=== PATIENT | female | born 1990 | race Caucasian/White ===

== ENCOUNTER 2017-06-25 18:46 | Observation (INO) | payer OTHER ==
[2017-06-25] MEDS ORDERED: Ondansetron HCl/PF 4 MG/2 ML Vial ONE ×2 (18:54→19:19)
[2017-06-25 19:23] LABS: #Lymphocytes 1.1 thou/uL (1.20-3.40); #Monocytes 0.9 thou/uL (0.11-0.59); #Neutrophils 14.3 thou/uL (1.40-6.50); %Basophils 0.2 % (0.0-1.0); %Eosinophils 0.1 % (0.0-10.0); %Lymphocytes 6.8 % (21.0-51.0); %Monocytes 5.2 % (0.0-10.0); %Neutrophils 87.7 % (42.0-75.0); Hemoglobin 11.4 g/dL (12.0-16.0); Mean Corpuscular HGB CONC 32.8 g/dL (32.0-36.0); Mean Corpuscular Hemoglobin 27.9 pg (27.0-31.0); Mean Corpuscular Volume 84.9 fl (81.0-99.0); Mean Platelet Volume 6.5 fL (7.4-10.4); Platelet Count 281 thou/uL (130-400); RBC Distribution Width 11.5 % (11.5-14.5); White Blood Cell (WBC) Count 16.3 thou/uL (4.8-10.8)
[2017-06-25 19:38] LABS: ALT (SGPT) 14 U/L (8-55); AST (SGOT) 13 U/L (5-34); Albumin 4.2 g/dL (3.5-5.0); Alkaline Phosphatase 57 U/L (40-150); Anion Gap 14 mmol/L (10-20); BUN (Urea Nitrogen) 13 mg/dL (7.0-18.7); Bilirubin, Total 0.7 mg/dL (0.2-1.2); Calc. Creatinine Clearance 0 mL/min (70-130); Calcium 9.4 mg/dL (7.8-10.44); Carbon Dioxide 23 mmol/L (22-29); Chloride 102 mmol/L (98-107); Estimated GFR-MDRD 88; Globulin 3.1 g/dL (2.4-3.5); Glucose 112 mg/dL (70-105); Lipase 8 U/L (8-78); Potassium 3.4 mmol/L (3.5-5.1); Protein, Total 7.3 g/dL (6.0-8.3); Sodium 136 mmol/L (136-145)
[2017-06-25 19:39] LABS: BHCG - Serum Negative (NEGATIVE); Pregs Control Background? CLEAR/WHITE (CLR/WHITE); Pregs Control Bar Appear? YES (CONTROL BAR)
[2017-06-25] MEDS ORDERED: Morphine 4 MG/ML Carpuject ONE (19:39)
[2017-06-25] MEDS ORDERED: Fentanyl 100 MCG/2 ML VIAL ONE ×2 (20:50→21:54)
[2017-06-25 21:09] LABS: Bilirubin Negative (Negative); Blood, Urine Negative (Negative); Clarity Cloudy (Clear); Glucose, Urine (Dipstick) Negative (Negative); Leukocyte Negative (Negative); Nitrite Negative (Negative); Protein, Urine (Dipstick) Negative (Neg-Trace); Specific Gravity, Urine 1.015 (1.005-1.030); Urobilinogen 0.2 mg/dL (0.2-1.0); pH, Urine 8.5 (5.0-9.0)
--- NOTE | 2017-06-25 21:41 | CT ---
CT ABDOMEN AND PELVIS WITH IV CONTRAST: 06/25/17 Multiple axial tomograms obtained through the abdomen and pelvis with IV enhancement. HISTORY: Right lower quadrant pain. Nausea, vomiting. FINDINGS: Lung bases are clear. Liver, spleen and pancreas unremarkable. Adrenal glands and kidneys are unremar kable. No hydronephrosis. No urinary tract calculus. Urinary bladder unremarkable. Small bowel loops appear unremarkable. The appendix is dilated and inflamed. There are radiodensities within the appendix suggesting appendicoliths. Small amount of fluid is seen adjacent to the appendi x. No definite evidence of rupture at this time. There is a small amount of fluid in the cul-de-sac. IMPRESSION: 1. Dilated inflamed appendix consistent with appendicitis. 2. Small amount of fluid adjacent to the appendix. No definite evidence of rupture. 3. Small amount of cul-de-sac fluid noted. Findings relayed to the nurse in the Emergency Department who will notify Dr. Johns of these findin gs. POS: [facility]
[2017-06-26 00:35] VITALS: BMI 28.0
[2017-06-26] MEDS ORDERED: Acetaminophen 1,000 MG in Premix Bag 1 BAG IVPB PRN (01:28)
[2017-06-26] MEDS ORDERED: Scopolamine 1.5 mg/72 hour Patch TOP SCH (01:30)
[2017-06-26] MEDS ORDERED: Fentanyl 100 MCG/2 ML VIAL SLOW IVP PRN (01:32)
[2017-06-26] MEDS ORDERED: Ondansetron HCl/PF 4 MG/2 ML Vial IVP PRN ×2 (01:33→09:10)
[2017-06-26] MEDS ORDERED: Ondansetron ODT 4 MG TAB SL PRN (01:33)
[2017-06-26] MEDS: Sodium Chloride 0.9% 1,000 ML IV SCH ×2 (01:40→11:07)
[2017-06-26] MEDS: Ketorolac Tromethamine 30 MG/ML VIAL IVP PRN ×2 (01:41→09:55)
[2017-06-26] MEDS ORDERED: metroNIDAZOLE 500 MG in Premix Bag 1 BAG IVPB SCH (02:00)
[2017-06-26] MEDS ORDERED: Bupivacaine PF 0.5% 30 ML VIAL ONE (07:00)
[2017-06-26] MEDS ORDERED: Lidocaine 1% w/Epinephrine 1:200K 30 ML VIAL ONE (07:00)
[2017-06-26] MEDS ORDERED: HYDROmorphone 0.5 MG/0.5 ML SYRINGE ONE (07:11)
[2017-06-26] MEDS ORDERED: Fentanyl 100 MCG/2 ML VIAL ONE (07:11)
--- NOTE | 2017-06-26 08:36 | HP ---
HISTORY OF PRESENT ILLNESS: A 27-year-old female who works at [employer], presents with a more than 24- hour history of abdominal pain localizing to her right lower quadrant; developed nausea, anorexia, an d increased pain with movement. She presents to the emergency room at [facility] and I was called at 8:30 p.m. arriving at [facility] surgical floor at 10:30 p.m. White count 16 .3, hemoglobin 11.4. CAT scan reveals changes consistent with appendicitis. She has not had a fever . She is allergic to PENICILLIN, CEPHALOSPORINS, SULFA; and she refused Levaquin and Flagyl. ALLERGIES: CEPHALOSPORINS, PENICILLIN, SULFA. TOBACCO: None. ALCOHOL: Socially, rarely. MEDICATIONS: Robaxin 500 mg daily, Topamax 50 mg p.o. daily, Vyvanse 50 mg a.m., Cymbalta 30 mg maile y, Protonix 40 mg daily, Zofran p.r.n. PAST MEDICAL HISTORY: ADHD, fibromyalgia, complex migraines, gastroesophageal reflux disease, chroni c lumbar pain from disk disease. PAST SURGICAL HISTORY: Noncontributory. REVIEW OF SYSTEMS: Ten-point noncontributory. PHYSICAL EXAMINATION: VITAL SIGNS: 5 foot, 253 pounds, 28 BMI, 98.7, 85, 20, 123/82. HEAD, EYES, EARS, NOSE, AND THROAT: Unremarkable. LUNGS: Clear to auscultation. CARDIAC: Regular rate and rhythm without murmur or gallop. ABDOMEN: Soft, tenderness in right lower quadrant. No guarding or rebound. She wants to lay in the position in left lateral decubitus to minimize her pain. EXTREMITIES: Unremarkable. ASSESSMENT AND PLAN: Acute appendicitis. Recommend laparoscopic video appendectomy. Risk of infect ion, bleeding, visceral injury, open operation, and leakage of the appendiceal stump were discussed a nd she consents. Questions answered.
[2017-06-26] MEDS ORDERED: FLU VACC QS2017-18 36 mo. & older 0.5 ML SYRINGE IM ONE (09:00)
[2017-06-26] MEDS ORDERED: Ondansetron ODT 4 MG TAB PO PRN (09:04)
--- NOTE | 2017-06-26 09:09 | DIS ---
DATE OF ADMISSION: 06/25/2017 DATE OF DISCHARGE: 06/26/2017 DISCHARGE DIAGNOSIS: Acute appendicitis. PROCEDURES THIS HOSPITALIZATION: CT scan of abdomen and pelvis and laparoscopic video appendectomy. HISTORY: A 27-year-old female presenting with history exam consistent with appendicitis seen in the emergency room and underwent a CAT scan confirming that, admitted, given intravenous fluids, antibiot ics overnight and undergoing laparoscopic video appendectomy the next morning Wednesday and discharged home the same day and tramadol for pain as needed for breakthrough, ibuprofen and Tylenol. Diet and activity as tolerated. Follow up in 2 weeks.
[2017-06-26] MEDS ORDERED: HYDROmorphone 2 MG/ML VIAL SLOW IVP PRN (09:10)
[2017-06-26] MEDS ORDERED: Meperidine HCl/PF 25 MG/ML VIAL SLOW IVP PRN (09:10)
[2017-06-26] MEDS ORDERED: Promethazine HCl 25 MG/ML VIAL IM PRN (09:10)
[2017-06-26] MEDS ORDERED: Promethazine HCl 25 MG/ML VIAL SLOW IVP PRN (09:10)
[2017-06-26] MEDS ORDERED: Topiramate 25 MG TAB PO SCH (09:15)
[2017-06-26] MEDS ORDERED: DULoxetine 30 MG CAP PO SCH (09:15)
--- NOTE | 2017-06-26 09:24 | OP ---
DATE OF OPERATION: 06/26/2017 PREOPERATIVE DIAGNOSIS: Acute appendicitis. POSTOPERATIVE DIAGNOSIS: Acute appendicitis. PROCEDURE: Laparoscopic video appendectomy. SURGEON: Dr. Marquis Ji. ANESTHESIA: General. Local 0.5% Marcaine 30 mL 1% Xylocaine with epinephrine, 30 mL. PROCEDURE IN DETAIL: The patient taken to the operating room where under general anesthesia, Monique c atheter placed at the beginning of the procedure and removed at the end. Abdomen clipped of hair, pr epared with chloraprep, draped in routine fashion. Local anesthetic infiltrated into skin and subcut aneous tissue about each port site. Infraumbilical incision made and pneumoperitoneum to 15 mmHg obt ained with the Veress needle, replacing it with a 5 port and laparoscope inserted. Right lateral sub costal incision made and a 5 port placed. Suprapubic incision made and a 12 port placed. Appendix w as acutely inflamed. Mesoappendix taken down with the LigaSure. The stump of the appendix, divided the cecal stump with Endo blue load AMY stapler. Stapled cecal stump was hemostatic and secure as th e appendix removed and submitted to Pathology. Good hemostasis ensured. Irrigant and pneumoperitone um evacuated after suprapubic fascia approximated with 0 Vicryl suture. All skin incisions approxima daiana with interrupted subdermal 4-0 Monocryl and DermaGlue applied. The patient tolerated the procedu re well.
[2017-06-26] MEDS ORDERED: traMADol HCl 50 MG TAB PO PRN ×2 (09:33)
[2017-06-26] MEDS ORDERED: Acetaminophen 500 MG TAB PO PRN (09:33)
[2017-06-26] MEDS ORDERED: Ibuprofen 600 MG TAB PO PRN (09:33)
[2017-06-26 10:10] VITALS: BP 93/59; TEMP 98.1
[2017-06-26] MEDS ORDERED: Ondansetron HCl/PF 4 MG/2 ML Vial ONE (15:51)
[2017-06-26] MEDS ORDERED: Propofol 200 MG/20 ML VIAL ONE (15:51)
[2017-06-26] MEDS ORDERED: Dexamethasone 20 MG/5 ML VIAL ONE (15:51)
[2017-06-26] MEDS ORDERED: Succinylcholine Chloride 20 MG/ML 10 ml SYRINGE FS ONE (15:51)
[2017-06-26] MEDS ORDERED: Lidocaine 1% PF 5 ML VIAL ONE (15:51)
[2017-06-26] MEDS ORDERED: Ketorolac Tromethamine 30 MG/ML VIAL ONE (15:51)
[2017-06-27] MEDS ORDERED: VYVANSE 50 MG PO SCH (09:00)
[2017-06-27] MEDS ORDERED: DULoxetine 30 MG CAP PO SCH (09:00)
[2017-06-27] MEDS ORDERED: Topiramate 25 MG TAB PO SCH (09:00)
[2017-06-27] MEDS ORDERED: Methocarbamol 500 MG TAB PO SCH (09:00)
== END 2017-06-26 13:23 | disposition home or self-care (01) ==
LOC: SCSER 18:46 → SURG B 20:30
PROVIDERS: ADMIT Specialist; ATTEND Specialist
PROC: 0DTJ4ZZ Resection of Appendix, Percutaneous Endoscopic Approach (ICD-10-PCS; principal; 2017-06-26)
DX: K35.80 Unspecified acute appendicitis (principal); F90.9 Attention-deficit hyperactivity disorder, unspecified type; M79.7 Fibromyalgia; G43.809 Other migraine, not intractable, without status migrainosus; K21.9 Gastro-esophageal reflux disease without esophagitis; M51.36 Other intervertebral disc degeneration, lumbar region; G89.29 Other chronic pain; Z88.0 Allergy status to penicillin; Z88.2 Allergy status to sulfonamides; Z88.1 Allergy status to other antibiotic agents; Z79.899 Other long term (current) drug therapy
CPT/HCPCS: 36415; 74177; 80053; 81003; 83690; 84703; 85025; 88304; 90471; 90682; 96361; 96365; 96367; 96375; 96376; G0008; G0378; J0131; J1100; J1170; J1885; J1956; J2001; J2270; J2405; J2704; J3010; Q0162; Q2036; S0020